=== PATIENT | female | born 1975 | race Caucasian/White ===

== ENCOUNTER → 2019-09-16 | Outpatient (CLI) | payer BC ==
--- NOTE | 2019-09-16 11:16 | Diagnostic Imaging Report ---
INDICATION: Gestational diabetes. TECHNIQUE: Multiple real-time grayscale images were obtained over the gravid uterus. COMPARISON: None. FINDINGS: There is a single live fetus in a cephalic presentation. heart rate was recorded at 139 BPM. Placenta is anterior. There does appear to be an amniotic band along the left side of the uterus. No definite parts are surrounded by the band. Biophysical profile was also performed. Biophysical profile score is normal at 8/8. Biometrical measurements are as follows: Biparietal 8.43 cm, age 34 weeks 0 days. Head circumference 30.77 cm, age 34 weeks 3 days. Abdominal circumference 29.57 cm, age 33 weeks 4 days. Femur length 6.47 cm, age 33 weeks 3 days. Sonographic estimate age: 33 weeks 6 days. Sonographic estimated date of delivery: 10/29/2019. Estimated Weight: 2237 gm (+/- 327 gm). LMP percentile: 87%. heart rate: 139 beats per minute. number: 1 of 1. IMPRESSION: 1. Single live IUP of approximately 34 weeks gestational age with estimated date of confinement sonographically of 10/29/2019. 2. Findings consistent with an amniotic band on the left side of the uterus. No definite parts are encircled by the band at this time. 3. Normal biophysical profile score at 8/8. Dictated by: Dictated on workstation # [id number]
== END ==
LOC: RAD 09:13
PROVIDERS: ATTEND Obstetrics & Gynecology
DX: O24.410 Gestational diabetes mellitus in pregnancy, diet controlled (principal); O09.523 Supervision of elderly multigravida, third trimester; Z3A.34 34 weeks gestation of pregnancy
CPT/HCPCS: 76805; 76819

== ENCOUNTER → 2019-10-19 | Outpatient (CLI) | payer BC ==
--- NOTE | 2019-10-19 17:22 | Diagnostic Imaging Report ---
INDICATION: History of advanced maternal age. Gestational diabetes. TECHNIQUE: Multiple real-time grayscale images were obtained over the gravid uterus. COMPARISON: 09/16/2019. FINDINGS: There is single intrauterine . heartbeat is documented at 144 BPM. Placenta is anterior, not low lying. Amniotic fluid measures 20.75 cm. Please note, this is greater than the 95th percentile. This however has not significantly changed compared to 21 cm total DAIANA on prior exam. position is breech. Performing boiling tub operator also makes note of amniotic band on the left. There is no evidence of involvement of parts at this time. IMPRESSION: 1. Single live intrauterine . 2. Stable polyhydramnios. 3. Please see below for additional details. Biometrical measurements are as follows: Biparietal 9.07 cm, age 36 weeks 6 days. Head circumference 34.23 cm, age 39 weeks 4 days. Abdominal circumference 33.03 cm, age 37 weeks 0 days. Femur length 7.05 cm, age 36 weeks 1 days. Sonographic estimate age: 37 weeks 3 days. Sonographic estimated date of delivery: 11/06/19. Estimated Weight: 3089 gm (+/- 451 gm). LMP percentile: 63%. heart rate: 144 beats per minute. number: 1 of 1. Dictated by: Dictated on workstation # [id number]
== END ==
LOC: RAD 13:41
PROVIDERS: ATTEND Obstetrics & Gynecology
DX: O09.523 Supervision of elderly multigravida, third trimester (principal); O24.410 Gestational diabetes mellitus in pregnancy, diet controlled; O40.3XX1 Polyhydramnios, third trimester, fetus 1; Z3A.36 36 weeks gestation of pregnancy
CPT/HCPCS: 76805; 76819

== ENCOUNTER 2019-10-29 05:51 | Outpatient (RCR) | payer BC ==
[~2019-10-29] VITALS: Ht 167.7 cm; Wt 103.2 kg
[2019-10-29] MEDS ORDERED: METF-397 PO (15:04)
[2019-10-29] MEDS ORDERED: PNV1TABL81 PO (15:04)
[2019-11-03] MEDS ORDERED: IBUP-844 PO (08:35)
[2019-11-03] MEDS ORDERED: OXYC5TAB96 PO (08:35)
[2019-11-03] MEDS ORDERED: ACET-93 PO (08:35)
[2019-11-03] MEDS ORDERED: FERR-84 PO (08:35)
[2019-11-03] MEDS ORDERED: DCS100C PO (08:35)
== END 2019-10-29 16:00 | disposition home or self-care (01) ==
LOC: PREOP 05:51
PROVIDERS: ATTEND Obstetrics & Gynecology
DX: Z01.818 Encounter for other preprocedural examination (principal); E11.9 Type 2 diabetes mellitus without complications; I10 Essential (primary) hypertension; Z20.828 Contact with and (suspected) exposure to other viral communicable diseases
CPT/HCPCS: 87635

== ENCOUNTER → 2019-10-29 | Outpatient (CLI) | payer BC ==
[~2019-10-29] MED LIST: ACET-93 PO; DCS100C PO; FERR-84 PO; IBUP-844 PO; METF-397 PO; OXYC5TAB96 PO; PNV1TABL81 PO
== END ==
LOC: LAB FS 10:15
PROVIDERS: ATTEND Obstetrics & Gynecology
DX: Z01.818 Encounter for other preprocedural examination (principal); Z20.828 Contact with and (suspected) exposure to other viral communicable diseases

== ENCOUNTER 2019-11-02 10:39 | Inpatient (IN) | payer BC ==
[2019-11-02] VITALS (9 sets, daily range): BP systolic 107–142; BP diastolic 68–90
[~2019-11-02] VITALS: Ht 167.7 cm; Wt 102.1 kg
[~2019-11-02 10:39] MED LIST changes: -ACET-93 PO; -DCS100C PO; -FERR-84 PO; -IBUP-844 PO; -OXYC5TAB96 PO
--- NOTE | 2019-11-02 10:45 | NUR ---
Arrived to unit ambulates self accompanied by s.o. Pt here for contractions and monitoring, possible repeat today. Orders received from Dr Mcqueen prior to pt arrival. Wt obtained and to room 315. Gowned and urine sample obtained. To bed and oriented to call light, bed controls and surroundings. Plan of care reviewed with pt and s.o. at bedside.
[2019-11-02] MEDS ORDERED: NS IV 1000 ML 1,000 ML IV SCH (11:14)
--- OUTSIDE RECORDS SUMMARY | 2019-11-02 11:33 | XMS REPORT | Continuity of Care Document ---
Demographics Preferred Language Unknown Marital Status Unknown Alevism Affiliation Unknown Race Unknown Ethnic Group Unknown Author Organization Unknown Address Unknown Phone Unavailable Allergies Active Description Code Type Severity Reaction Onset Reported/Identified Relationship to Patient Clinical Status Yes NO KNOWN DRUG ALLERGIES UNKNOWN NO KNOWN DRUG ALLERG Yes NO KNOWN DRUG ALLERGIES UNKNOWN UNKNOWN Yes No Known Drug Allergies [id number] Drug Allergy Unknown N/A 10/29/2019 Medications There is no data. Problems Date Dx Coded Attending Type Code Diagnosis Diagnosed By 05/29/2017 A 626.0 ABSE NCE OF MENSTRUATION 05/29/2017 A N91.1 SECO NDARY AMENORRHEA 07/10/2017 Chelita Johnson A 626.0 ABSENCE OF MENSTRUATION 07/10/2017 Hilaria Johnsona A N91.1 SECONDARY AMENORRHEA 07/10/2017 Hilaria Johnsona A 626.0 ABSENCE OF MENSTRUATION 07/10/2017 Hilaria Johnsona A N91.1 SECONDARY AMENORRHEA 04/07/2018 Hilaria Johnsona W V70.0 ROUTINE GENERAL MEDICAL EXAMINATION AT A HEALTH CARE FACILITY 04/07/2018 Hilaria Johnsona W Z00.00 ENCOUNTER FOR GENERAL ADULT MEDICAL EXAMINATION WITHOUT ABNORMAL FINDINGS 04/07/2018 Hilaria Johnsona W V70.0 ROUTINE GENERAL MEDICAL EXAMINATION AT A HEALTH CARE FACILITY 04/07/2018 Hilaria Johnsona W Z00.00 ENCOUNTER FOR GENERAL ADULT MEDICAL EXAMINATION WITHOUT ABNORMAL FINDINGS 04/07/2018 W V70.0 ROUT INE GENERAL MEDICAL EXAMINATION AT A HEALTH CARE FACILITY 04/07/2018 W Z00.00 ENC OUNTER FOR GENERAL ADULT MEDICAL EXAMINATION WITHOUT ABNORMAL FINDINGS 04/07/2018 AlexHilraiaa W V70.0 ROUTINE GENERAL MEDICAL EXAMINATION AT A HEALTH CARE FACILITY 04/07/2018 Hilaria Johnsona W Z00.00 ENCOUNTER FOR GENERAL ADULT MEDICAL EXAMINATION WITHOUT ABNORMAL FINDINGS 04/16/2018 Hilaria Johnsona W V70.0 ROUTINE GENERAL MEDICAL EXAMINATION AT A HEALTH CARE FACILITY 04/16/2018 Hilaria Johnsona W Z00.00 ENCOUNTER FOR GENERAL ADULT MEDICAL EXAMINATION WITHOUT ABNORMAL FINDINGS 04/16/2018 Hilaria Johnsona W V70.0 ROUTINE GENERAL MEDICAL EXAMINATION AT A HEALTH CARE FACILITY 04/16/2018 Chelita Johnson Z00.00 ENCOUNTER FOR GENERAL ADULT MEDICAL EXAMINATION WITHOUT ABNORMAL FINDINGS 09/17/2019 WU DO, BRIA C Ot O09.5 23 [facility] 09/17/2019 WU DO, BRIA C Ot O24.4 10 GESTATIONAL DIABETES MELLITUS IN PREGNAN 09/17/2019 WU DO, BRIA C Ot Z3A.3 4 34 WEEKS GESTATION OF 10/05/2019 WU DO, BRIA C Ot O09.5 23 [facility] 10/05/2019 WU DO, BRIA C Ot O24.4 10 GESTATIONAL DIABETES MELLITUS IN PREGNAN 10/05/2019 WU DO, BRIA C Ot Z3A.3 4 34 WEEKS GESTATION OF 10/21/2019 WU DO, BRIA C Ot O09.5 23 [facility] 10/21/2019 WU DO, BRIA C Ot O24.4 10 GESTATIONAL DIABETES MELLITUS IN PREGNAN 10/21/2019 WU DO, BRIA C Ot O40.3XX1 POLYHYDRAMNIOS, THIRD TRIMESTER, FETUS 1 10/21/2019 WU DO, BRIA C Ot Z3A.3 6 36 WEEKS GESTATION OF Procedures There is no data. Results Test Result Range FSH and LH - 07/10/17 10:56 LH 40.9 mIU/mL FSH 7.9 mIU/mL Estradiol - 07/10/17 10:56 Estradiol 292.6 pg/mL Thyroid Stimulating Hormone - 07/10/17 1 0:56 TSH 4.60 mIU/mL 0.32-5.00 FSH and LH - 07/10/17 10:56 LH 40.9 MIU/ML FSH 7.9 MIU/ML Estradiol - 07/10/17 10:56 Estradiol 292.6 PG/ML Pap IG (Image Guided) - 04/07/18 16:03 DIAGNOSIS: Comment Specimen adequacy: Comment Clinician provided ICD10: Comment Performed by: Comment . . Note: Comment Test Methodology: Comment Coronavirus SARS-CoV-2 SO 2019 - 0 10:15 Coronavirus Ab [Units/volume] in Serum Negative Negative Encounters ACCT No. Visit Date/Time Discharge Status Pt. Type Provider Facility Loc./Unit Complaint [id number] 07/11/2017 07:15:00 Document Registration [id number] 04/11/2018 13:15:00 Document Registration [id number] 10/29/2019 10:15:00 23:59:59 CLS Outpatient BRIA WU DO [facility] LAB FS PRE OP REQUIREMENT [id number] 10/29/2019 05:51:00 23:59:59 CLS Outpatient BRIA WU DO [facility] PREOP PREVIOUS [id number] 10/19/2019 13:41:00 23:59:59 CLS Outpatient BRIA WU DO [facility] RAD GESTATIONAL DIABETES ME LLITUS,CLASS A1 [id number] 09/16/2019 09:13:00 23:59:59 CLS Outpatient BRIA WU DO [facility] RAD GESTATIONAL DIABETES,31 WEEKS [id number] 04/28/2019 13:41:00 04/28/2019 23:59 :00 DIS Outpatient Hanh Salinas [id number] 04/28/2019 13:39:00 04/28/2019 23:59 :00 DIS Outpatient Hanh Salinas [id number] 04/16/2018 08:30:00 04/16/2018 23:59: 00 DIS Outpatient Chelita Johnson [id number] 04/07/2018 16:02:00 04/07/2018 23:59: 00 DIS Outpatient Chelita Johnson [id number] 07/10/2017 10:53:00 07/10/2017 23:59: 00 DIS Outpatient Chelita Johnson [id number] 08/22/2016 15:00:00 08/22/2016 23:59: 00 DIS Outpatient Chelita Johnson [id number] 04/07/2018 14:11:00 Document Registration [id number] 05/29/2017 14:05:00 Document Registration
[2019-11-02 11:55] LABS: BASOPHILS % (AUTO) 0 % (0-10); EOSINOPHILS % (AUTO) 0 % (0-10); HEMATOCRIT 35 % (35-52); HEMOGLOBIN 11.5 G/DL (11.5-16.0); LYMPHOCYTES # (AUTO) 1.6 X 10^3 (1.0-4.0); LYMPHOCYTES % (AUTO) 17 % (12-44); MEAN CORPUSCULAR HEMOGLOBIN 26 PG (25-34); MEAN CORPUSCULAR HGB CONC 33 G/DL (32-36); MEAN CORPUSCULAR VOLUME 81 FL (80-99); MEAN PLATELET VOLUME 10.4 FL (7.4-10.4); MONOCYTES # (AUTO) 0.6 X 10^3 (0.0-1.0); MONOCYTES % (AUTO) 6 % (0-12); NEUTROPHILS # (AUTO) 7.3 X 10^3 (1.8-7.8); NEUTROPHILS % (AUTO) 77 % (42-75); PLATELET COUNT 317 10^3/uL (130-400); RED CELL DISTRIBUTION WIDTH 14.8 % (10.0-14.5); WHITE BLOOD COUNT 9.5 10^3/uL (4.3-11.0)
[2019-11-02 11:58] LABS: BILIRUBIN,URINE NEGATIVE (NEGATIVE); CLARITY,URINE CLEAR; COLOR,URINE YELLOW; GLUCOSE, URINE (UA) NEGATIVE (NEGATIVE); KETONES,URINE 3+ (NEGATIVE); LEUKOCYTE ESTERASE ,URINE 1+ (NEGATIVE); NITRITE,URINE NEGATIVE (NEGATIVE); PH,URINE 6.5 (5-9); PROTEIN,URINE NEGATIVE (NEGATIVE)
[2019-11-02 12:07] LABS: BACTERIA,URINE FEW /HPF; RBC,URINE RARE /HPF
--- NOTE | 2019-11-02 12:10 | NUR ---
Dr Mcqueen called and new order to prepare pt for received. plan of care reviewed with pt and s.o.
[2019-11-02 12:17] LABS: ALANINE AMINOTRANSFERASE 35 U/L (0-55); ALBUMIN 3.4 GM/DL (3.2-4.5); ALKALINE PHOSPHATASE 133 U/L (40-136); BILIRUBIN,TOTAL 0.6 MG/DL (0.1-1.0); BUN/CREATININE RATIO 8; CALCIUM 8.5 MG/DL (8.5-10.1); CARBON DIOXIDE 15 MMOL/L (21-32); CHLORIDE 110 MMOL/L (98-107); CREATININE SERUM 0.63 MG/DL (0.60-1.30); GFR ESTIMATED > 60; GLUCOSE 70 MG/DL (70-105); POTASSIUM 3.9 MMOL/L (3.6-5.0); SODIUM 137 MMOL/L (135-145); TOTAL PROTEIN 6.6 GM/DL (6.4-8.2); URIC ACID 4.9 MG/DL (2.6-7.2)
--- NOTE | 2019-11-02 12:19 | NUR ---
Report to Bebe Cool RN
[2019-11-02] MEDS ORDERED: METOCLOPRAMIDE INJ 10 MG/2 ML (REGLAN) ONE (12:30)
[2019-11-02] MEDS ORDERED: CITRIC ACID/SOB CIT (BICITRA) 30 ML UDC ONE (12:30)
[2019-11-02] MEDS ORDERED: LACTATED RINGERS 1,000 ML IV ONE (12:30)
[2019-11-02] MEDS ORDERED: ceFAZolin INJECTION 1,000 MG in WATER (STERILE) FOR INJECTION 10 ML IV ONE (12:30)
[2019-11-02] MEDS ORDERED: WATER (STERILE) FOR INJECTION 10 ML ONE (12:31)
[2019-11-02] MEDS ORDERED: FAMOTIDINE 20MG/2ML IV (PEPCID) ONE (12:31)
[2019-11-02] MEDS ORDERED: ceFAZolin INJECTION 1,000 MG ONE (12:31)
[2019-11-02] MEDS ORDERED: fentaNYL INJECTION 100 MCG/2 ML AMP ONE (12:32)
[2019-11-02] MEDS ORDERED: OXYTOCIN PRE-MIX DRIP 1,000 ML IV ONE (12:34)
--- NOTE | 2019-11-02 12:40 | NUR ---
per-op medications given, see eMar for further
--- NOTE | 2019-11-02 12:53 | NUR ---
pt ambulated to OB c/s room with OR staff @ side. pt stable with no sx's of distress noted
[2019-11-02] MEDS ORDERED: ONDANSETRON 4 MG/2 ML (SDV) Z0FRAN ONE (13:23)
--- NOTE | 2019-11-02 13:59 | Cesarean Section Operative ---
Procedure Procedure Note Pre-operative Diagnosis: Terra Vallejo is a 43 /Para 3/4 ,Gestational Age 38 5/7, history of previous section, in labor, gestational hypertension, gestational diabetes, A2, borderline NST, malpresentation (breech) Post-operative Diagnosis: same [] Procedure: repeat low transverse section Physician: BRIA WU Hay Stacker: [] Estimated blood loss: 500 mL Disposition: [] Findings: Viable male infant, Apgars pending, weight pending intact placenta, 3vc, normal appearing uterus, tubes, and ovaries. Indications:Terra Vallejo is a 43 /Para 3/4 ,Gestational Age 38 5/7, history of previous section, in labor, gestational hypertension, gestational diabetes, A2, borderline NST, malpresentation (breech) Procedure Details: The patient was seen in pre-op and the procedure was discussed with the patient in full, including the risks, benefits, and alternatives. All questions were answered. The patient was taken to the operating room and a time out was performed, verifying patient and procedure. After spinal anesthesia was placed by our anesthesia colleagues, the patient was placed in the dorsal supine with leftward tilt for uterine displacement.~ Her abdomen was then prepped and draped in the typical sterile fashion. A Pfannenstiel skin incision was made using a scalpel and carried down through the underlying fascia. The fascia was incised in the midline and tented up using Chad clamps. On both the inferior and superior fascia side the rectus muscle was dissected off bluntly and sharply using Chavez scissors. The peritoneum was identified and entered bluntly in the midline. This was then stretched laterally using manual strength. After entering the abdominal cavity and confirming lack of intraperitoneal adhesions, a large Esteban retractor was placed and the lower uterine segment was visualized. A bladder flap was created with the use of Metzenbaum scissors.~ A scalpel was utilized to make a low transverse uterine incision. Amniotomy was performed with an Allis clamp with return of clear fluid. The 's head was grasped and brought to the level of the incision. Fundal pressure was applied and was delivered without difficulty. Mouth and nares were suctioned with bulb suction. After the umbilical cord was clamped and cut, the was handed off to the pediatric staff. A sample of cord blood was then obtained. The placenta was delivered intact via uterine massage. The uterus was e xteriorized and cleared of all clots and debris. The uterine incision was closed using 0 Vicryl in a running locked fashion. A second imbricated layer was placed using 0 Vicryl in a running fashion as well. The uterus was flexed forward and the posterior rectouterine space was inspected and cleared of all clots and debris. Again the hysterotomy site was examined and hemostasis was observed. The bilateral tubes and ovaries appeared normal. The uterus was placed back into the abdominal cavity and abdominal gutters were cleared of all clots and debris. A final check of the uterine incision showed it to be hemostatic. The peritoneum was closed using 3-0 Vicryl in a running fashion. The fascia was closed with 0 Vicryl in a running fashion. The subcutaneous space was hemostatic, and irrigated. The subcutaneous space was closed with 3-0 Vicryl in several single interrupted stitches. The skin was then closed using 4-0 Monocryl in a running subcuticular fashion. The skin edges were reapproximated together and were hemostatic. A pressure dressing was applied. All sponge, lap and needle counts were correct at the end of the procedure per nursing. Vitals - Labs Vital Signs - I&O Vital Signs Date Time Temp Pulse Resp B/P (MAP) Pulse Ox O2 Delivery O2 Flow Rate FiO2 11/02/19 11:06 37.1 83 18 96 Room Air 11/02/19 11:05 37.1 76 16 138/90 (106) 96 Room Air Labs Laboratory Tests 11/02/19 11:15: Urine Color YELLOW, Urine Clarity CLEAR, Urine pH 6.5, Urine Specific Caldwell 1.015L, Urine Protein NEGATIVE, Urine Glucose (UA) NEGATIVE, Urine Ketones 3+H, Urine Nitrite NEGATIVE, Urine Bilirubin NEGATIVE, Urine Urobilinogen 1.0, Urine Leukocyte Esterase 1+H, Urine RBC (Auto) NEGATIVE, Urine RBC RARE, Urine WBC 2- 5, Urine Squamous Epithelial Cells 10-25H, Urine Crystals NONE, Urine Bacteria FEWH, Urine Casts NONE, Urine Mucus SMALLH, Urine Culture Indicated YES, Urine Creatinine 129H, Urine Protein/Creatinine Ratio 0.11 11/02/19 11:30: White Blood Count 9.5, Red Blood Count 4.36, Hemoglobin 11.5, Hematocrit 35, Mean Corpuscular Volume 81, Mean Corpuscular Hemoglobin 26, Mean Corpuscular Hemoglobin Concent 33, Red Cell Distribution Width 14.8H, Platelet Count 317, Mean Platelet Volume 10.4, Neutrophils (%) (Auto) 77H, Lymphocytes (%) (Auto) 17, Monocytes (%) (Auto) 6, Eosinophils (%) (Auto) 0, Basophils (%) (Auto) 0, Neutrophils # (Auto) 7.3, Lymphocytes # (Auto) 1.6, Monocytes # (Auto) 0.6, Eosinophils # (Auto) 0.0, Basophils # (Auto) 0.0, Sodium Level 137, Potassium Level 3.9, Chloride Level 110H, Carbon Dioxide Level 15L, Anion Gap 12, Blood Urea Nitrogen 5L, Creatinine 0.63, Estimat Glomerular Filtration Rate > 60, BUN/Creatinine Ratio 8, Glucose Level 70, Uric Acid 4.9, Calcium Level 8.5, Corrected Calcium 9.0, Total Bilirubin 0.6, Aspartate Amino Transf (AST/SGOT) 24, Alanine Aminotransferase (ALT/SGPT) 35, Alkaline Phosphatase 133, Lactate Dehydrogenase 162, Total Protein 6.6, Albumin 3.4 BRIA WU DO Nov 02, 2019 13:59
[2019-11-02] MEDS ORDERED: OXYTOCIN PRE-MIX DRIP 500 ML IV SCH (14:00)
[2019-11-02] MEDS ORDERED: CATHETER FLUSH 10 ML SYR IV SCH (14:00)
[2019-11-02] MEDS ORDERED: morphine INJ 4 MG/ML 1 ML (VIAL/SYRINGE) IVP PRN (14:00)
[2019-11-02] MEDS ORDERED: MEASLES,MUMPS,RUBELLA 1 EA INJ SC SCH (14:00)
[2019-11-02] MEDS ORDERED: TETANUS,DIPTH,PERTUSS P/F (BOOSTRIX) 0.5 ML VIAL IM SCH (14:00)
[2019-11-02] MEDS ORDERED: BUPIVACAINE 0.5% 30 ML (SENSORCAINE) VIAL ONE (14:04)
[2019-11-02] MEDS: KETOROLAC 30 MG/ML VIAL IV SCH ×2 (15:27→21:08)
[2019-11-02] MEDS: ACETAMINOPHEN 500 MG TAB (TYLENOL) PO SCH (17:37)
[2019-11-02] MEDS ORDERED: LACTATED RINGERS 1,000 ML IV PRN (18:13)
[2019-11-02] MEDS ORDERED: METOCLOPRAMIDE INJ 10 MG/2 ML (REGLAN) IV ONE (18:15)
[2019-11-02] MEDS ORDERED: FAMOTIDINE 20MG/2ML IV (PEPCID) IV ONE (18:15)
[2019-11-02] MEDS ORDERED: CITRIC ACID/SOB CIT (BICITRA) 30 ML UDC PO ONE (18:15)
--- NOTE | 2019-11-02 19:10 | NUR ---
report given to ELIEL Pleitez.
[2019-11-02] MEDS: DOCUSATE SODIUM 100 MG (COLACE) CAP PO SCH (21:08)
--- NOTE | 2019-11-02 21:15 | NUR ---
First void postop, pt assisted standby to bathroom, pericare pads changed, pt assisted back to bed, scds on and pumping bilat, call light in reach, needs denied.
[2019-11-03 00:37] VITALS: BP 131/77
[2019-11-03] MEDS: KETOROLAC 30 MG/ML VIAL IV SCH (02:40)
[2019-11-03] MEDS: ACETAMINOPHEN 500 MG TAB (TYLENOL) PO SCH ×3 (02:41→21:54)
[2019-11-03 06:09] LABS: BASOPHILS % (AUTO) 0 % (0-10); EOSINOPHILS # (AUTO) 0.1 10^3/uL (0.0-0.3); EOSINOPHILS % (AUTO) 1 % (0-10); HEMATOCRIT 32 % (35-52); HEMOGLOBIN 10.2 G/DL (11.5-16.0); LYMPHOCYTES # (AUTO) 1.6 X 10^3 (1.0-4.0); LYMPHOCYTES % (AUTO) 15 % (12-44); MEAN CORPUSCULAR HEMOGLOBIN 26 PG (25-34); MEAN CORPUSCULAR HGB CONC 32 G/DL (32-36); MEAN CORPUSCULAR VOLUME 82 FL (80-99); MEAN PLATELET VOLUME 10.5 FL (7.4-10.4); MONOCYTES # (AUTO) 0.9 X 10^3 (0.0-1.0); MONOCYTES % (AUTO) 8 % (0-12); NEUTROPHILS # (AUTO) 8.2 X 10^3 (1.8-7.8); NEUTROPHILS % (AUTO) 76 % (42-75); PLATELET COUNT 264 10^3/uL (130-400); RED CELL DISTRIBUTION WIDTH 14.4 % (10.0-14.5); WHITE BLOOD COUNT 10.7 10^3/uL (4.3-11.0)
[2019-11-03 06:30] VITALS: BP 145/69
--- NOTE | 2019-11-03 07:16 | Anesthesia-Regional Post-Op ---
Regional Patient Condition Mental Status: Alert, Oriented x3 Circulation: Same as Pre-Op Headache: Absent Sensation: Full Recovery Motor Block: Absent Post Op Complications Complications None Follow Up Care/Instructions Patient Instructions None needed. Anesthesia/Patient Condition Patient is doing well, no complaints, stable vital signs, no apparent adverse anesthesia problems. No complications reported per nursing. JUAN ANTONIO MANZANO CRNA Nov 03, 2019 07:16
--- NOTE | 2019-11-03 08:32 | Postpartum Progress Note ---
Post Op Post-operative Day #1 s/p RLTCS Subjective: Patient is without complaints. Ambulating, voiding after landis removed. Tolerating a regular diet without nausea or vomiting. Normal lochia. Pain is well controlled with oral pain medications. Passing flatus. breast feeding. Objective: 11/02/19 11/02/19 11/03/19 11/03/19 21:07 22:13 00:37 06:30 Temp 36.7 36.5 37.0 Pulse 89 78 85 Resp 18 18 18 B/P (MAP) 123/75 (91) 131/77 (95) 145/69 (94) Pulse Ox 95 95 94 O2 Delivery Room Air Room Air Room Air Room Air 11/03/19 00:00 Intake Total 10 ml Output Total 75 ml Balance -65 ml Laboratory Tests Test 11/02/19 11:15 11/02/19 11:30 11/03/19 05:45 Range/Units Urine Color YELLOW Urine Clarity CLEAR Urine pH 6.5 5-9 Urine Specific Grady 1.015 L 1.016-1.022 Urine Protein NEGATIVE NEGATIVE Urine Glucose (UA) NEGATIVE NEGATIVE Urine Ketones 3+ H NEGATIVE Urine Nitrite NEGATIVE NEGATIVE Urine Bilirubin NEGATIVE NEGATIVE Urine Urobilinogen 1.0 < = 1.0 MG/DL Urine Leukocyte Esterase 1+ H NEGATIVE Urine RBC (Auto) NEGATIVE NEGATIVE Urine RBC RARE /HPF Urine WBC 2-5 /HPF Urine Squamous Epithelial Cells 10-25 H /HPF Urine Crystals NONE /LPF Urine Bacteria FEW H /HPF Urine Casts NONE /LPF Urine Mucus SMALL H /LPF Urine Culture Indicated YES Urine Creatinine 129 H 30-125 MG/DL Urine Protein/Creatinine Ratio 0.11 White Blood Count 9.5 10.7 4.3-11.0 10^3/uL Red Blood Count 4.36 3.88 L 4.35-5.85 10^6/uL Hemoglobin 11.5 10.2 L 11.5-16.0 G/DL Hematocrit 35 32 L 35-52 % Mean Corpuscular Volume 81 82 80-99 FL Mean Corpuscular Hemoglobin 26 26 25-34 PG Mean Corpuscular Hemoglobin Concent 33 32 32-36 G/DL Red Cell Distribution Width 14.8 H 14.4 10.0-14.5 % Platelet Count 317 264 130-400 10^3/uL Mean Platelet Volume 10.4 10.5 H 7.4-10.4 FL Neutrophils (%) (Auto) 77 H 76 H 42-75 % Lymphocytes (%) (Auto) 17 15 12-44 % Monocytes (%) (Auto) 6 8 0-12 % Eosinophils (%) (Auto) 0 1 0-10 % Basophils (%) (Auto) 0 0 0-10 % Neutrophils # (Auto) 7.3 8.2 H 1.8-7.8 X 10^3 Lymphocytes # (Auto) 1.6 1.6 1.0-4.0 X 10^3 Monocytes # (Auto) 0.6 0.9 0.0-1.0 X 10^3 Eosinophils # (Auto) 0.0 0.1 0.0-0.3 10^3/uL Basophils # (Auto) 0.0 0.0 0.0-0.1 10^3/uL Sodium Level 137 135-145 MMOL/L Potassium Level 3.9 3.6-5.0 MMOL/L Chloride Level 110 H 98-107 MMOL/L Carbon Dioxide Level 15 L 21-32 MMOL/L Anion Gap 12 5-14 MMOL/L Blood Urea Nitrogen 5 L 7-18 MG/DL Creatinine 0.63 0.60-1.30 MG/DL Estimat Glomerular Filtration Rate > 60 BUN/Creatinine Ratio 8 Glucose Level 70 92 70-105 MG/DL Uric Acid 4.9 2.6-7.2 MG/DL Calcium Level 8.5 8.5-10.1 MG/DL Corrected Calcium 9.0 8.5-10.1 MG/DL Total Bilirubin 0.6 0.1-1.0 MG/DL Aspartate Amino Transf (AST/SGOT) 24 5-34 U/L Alanine Aminotransferase (ALT/SGPT) 35 0-55 U/L Alkaline Phosphatase 133 40-136 U/L Lactate Dehydrogenase 162 125-220 U/L Total Protein 6.6 6.4-8.2 GM/DL Albumin 3.4 3.2-4.5 GM/DL Physical Exam: General - Alert and oriented, no apparent distress Abdomen - Soft, appropriately tender to palpation, non-distended, fundus firm at umbilicus Incision - clean, dry and intact; no erythema or induration, no drainage Extremities - no edema, negative Zhou's bilaterally [] Assessment: 1. post-operative day # 1, status post rltcs. Recovering well, hemodynamically stable 2. GDM A2 3. Gest HYN 4. Acute blood loss anemia - mild Plan: Routine post-operative care. Encourage breast feeding. Encourage ambulation. VTE prophylaxis: SCDs. Ferrous sulfate supplementation. Plan for discharge Vitals - Labs Vital Signs - I&O Vital Signs Date Time Temp Pulse Resp B/P (MAP) Pulse Ox O2 Delivery O2 Flow Rate FiO2 11/03/19 06:30 37.0 85 18 145/69 (94) 94 Room Air 11/03/19 00:37 36.5 78 18 131/77 (95) 95 Room Air 11/02/19 22:13 Room Air 11/02/19 21:07 36.7 89 18 123/75 (91) 95 Room Air 11/02/19 17:38 37.0 81 16 123/68 (86) 94 Room Air 11/02/19 15:03 37.2 16 127/76 (93) 95 Room Air 11/02/19 15:03 37.2 83 18 127/76 (93) 95 Room Air 11/02/19 14:48 37.1 16 132/73 (92) 98 Room Air 11/02/19 14:28 37.3 18 127/74 (91) 98 Room Air 11/02/19 14:09 37.1 107/86 (93) 100 Room Air 11/02/19 12:40 68 18 142/79 (100) Room Air 11/02/19 11:06 37.1 83 18 96 Room Air 11/02/19 11:05 37.1 76 16 138/90 (106) 96 Room Air I & O 11/03/19 07:00 Intake Total 1210 ml Output Total 775 ml Balance 435 ml Labs Laboratory Tests 11/02/19 11:15: Urine Color YELLOW, Urine Clarity CLEAR, Urine pH 6.5, Urine Specific Grady 1.015L, Urine Protein NEGATIVE, Urine Glucose (UA) NEGATIVE, Urine Ketones 3+H, Urine Nitrite NEGATIVE, Urine Bilirubin NEGATIVE, Urine Urobilinogen 1.0, Urine Leukocyte Esterase 1+H, Urine RBC (Auto) NEGATIVE, Urine RBC RARE, Urine WBC 2- 5, Urine Squamous Epithelial Cells 10-25H, Urine Crystals NONE, Urine Bacteria FEWH, Urine Casts NONE, Urine Mucus SMALLH, Urine Culture Indicated YES, Urine Creatinine 129H, Urine Protein/Creatinine Ratio 0.11 11/02/19 11:30: White Blood Count 9.5, Red Blood Count 4.36, Hemoglobin 11.5, Hematocrit 35, Mean Corpuscular Volume 81, Mean Corpuscular Hemoglobin 26, Mean Corpuscular Hemoglobin Concent 33, Red Cell Distribution Width 14.8H, Platelet Count 317, Mean Platelet Volume 10.4, Neutrophils (%) (Auto) 77H, Lymphocytes (%) (Auto) 17, Monocytes (%) (Auto) 6, Eosinophils (%) (Auto) 0, Basophils (%) (Auto) 0, Neutrophils # (Auto) 7.3, Lymphocytes # (Auto) 1.6, Monocytes # (Auto) 0.6, Eosinophils # (Auto) 0.0, Basophils # (Auto) 0.0, Sodium Level 137, Potassium Level 3.9, Chloride Level 110H, Carbon Dioxide Level 15L, Anion Gap 12, Blood Urea Nitrogen 5L, Creatinine 0.63, Estimat Glomerular Filtration Rate > 60, BUN/Creatinine Ratio 8, Glucose Level 70, Uric Acid 4.9, Calcium Level 8.5, Corrected Calcium 9.0, Total Bilirubin 0.6, Aspartate Amino Transf (AST/SGOT) 24, Alanine Aminotransferase (ALT/SGPT) 35, Alkaline Phosphatase 133, Lactate Dehydrogenase 162, Total Protein 6.6, Albumin 3.4 11/03/19 05:45: White Blood Count 10.7, Red Blood Count 3.88L, Hemoglobin 10.2L, Hematocrit 32L, Mean Corpuscular Volume 82, Mean Corpuscular Hemoglobin 26, Mean Corpuscular Hemoglobin Concent 32, Red Cell Distribution Width 14.4, Platelet Count 264, Mean Platelet Volume 10.5H, Neutrophils (%) (Auto) 76H, Lymphocytes (%) (Auto) 15, Monocytes (%) (Auto) 8, Eosinophils (%) (Auto) 1, Basophils (%) (Auto) 0, Neutrophils # (Auto) 8.2H, Lymphocytes # (Auto) 1.6, Monocytes # (Auto) 0.9, Eosinophils # (Auto) 0.1, Basophils # (Auto) 0.0, Glucose Level 92 BRIA WU DO Nov 03, 2019 08:32
[2019-11-03] MEDS ORDERED: OXYC5TAB96 PO (08:35)
[2019-11-03] MEDS ORDERED: IBUP-844 PO (08:35)
[2019-11-03] MEDS ORDERED: DCS100C PO (08:35)
[2019-11-03] MEDS ORDERED: ACET-93 PO (08:35)
[2019-11-03] MEDS ORDERED: FERR-84 PO (08:35)
--- NOTE | 2019-11-03 08:37 | Discharge Inst-Women's Service ---
Discharge Inst-Women's Serv Depart Medication/Instructions New, Converted or Re-Newed RX: Other (transmitted to pharmacy and on chart) Final Diagnosis previous section labor gestational hypertension gestational diabetes A2 Acute blood loss anemia advanced maternal age 38 week gestation Consults/Follow Up Additional Follow Up: Yes (1 week for incision check. 6 week pp exam) Activity Activity: Activity as Tolerated Driving Instructions: No Driving for 1 Week NO SMOKING: NO SMOKING Nothing Inside Vagina: No Douching, No [place], No Tampons Diet Discharge Diet: No Restrictions Symptoms to Report to : Swelling Increased, Bleeding Excessive, Fever Over 101 Degrees F, Vaginal Bleeding Increase, Cramps in Feet or Legs, Vaginal Discharge Foul For Any Problems or Questions: Contact Your Physician Skin/Wound Care Infection Signs and Symptoms: Increased Redness, Foul Odor of Wound, Increased Drainage, Skin Itchy or Has a Rash, Increased Swelling, Temperature Above 101 F Operative Area Clean and Dry: Keep Incision Clean/Dry Stitches/Samina/Dermabond: Dermabond Bathing Instructions: BRIA Black DO Nov 03, 2019 08:37
[2019-11-03 09:00] VITALS: BP 127/75
--- NOTE | 2019-11-03 09:00 | NUR ---
ASSESSMENT COMPLETED. VSS. REFUSED MMR. STATES HAS HAD MMR SEVERAL TIMES AND STILL NON-IMMUNE. CARING FOR IN ROOM.
[2019-11-03] MEDS ORDERED: IBUPROFEN 600 MG (MOTRIN) TAB PO ONE (09:33)
[2019-11-03] MEDS: DOCUSATE SODIUM 100 MG (COLACE) CAP PO SCH ×2 (09:43→21:54)
[2019-11-03] MEDS: IBUPROFEN 600 MG (MOTRIN) TAB PO SCH ×3 (09:44→21:54)
[2019-11-03] MEDS ORDERED: FERROUS SULF 325 MG (IRON) TAB PO ONE (09:44)
[2019-11-03] MEDS: FERROUS SULF 325 MG (IRON) TAB PO SCH (09:47)
--- NOTE | 2019-11-03 12:00 | NUR ---
CARING FOR INFANT IN ROOM. DOING WELL.
[2019-11-03 12:30] VITALS: BP 136/77
--- NOTE | 2019-11-03 14:25 | NUR ---
PLACED CALL LIGHT ON. STATES THRE UP. LAB HERE TO TAKE TO NURSERY. MOM TO NSY WITH INFANT.
--- NOTE | 2019-11-03 16:00 | NUR ---
CONTINUES TO DO WELL. VOIDED WITHOUT PROBLEMS.
--- NOTE | 2019-11-03 18:00 | NUR ---
STORK MEAL SERVED WITH [id number].
[2019-11-03 19:00] VITALS: BP 138/81
--- NOTE | 2019-11-03 19:00 | NUR ---
VSS. CONTINUES TO CARE FOR IN ROOM.
[2019-11-03 21:54] VITALS: BP 145/78
[2019-11-04 04:21] VITALS: BP 140/82
[2019-11-04] MEDS: IBUPROFEN 600 MG (MOTRIN) TAB PO SCH ×2 (04:22→10:55)
[2019-11-04] MEDS: ACETAMINOPHEN 500 MG TAB (TYLENOL) PO SCH (05:59)
--- NOTE | 2019-11-04 07:28 | Postpartum Progress Note ---
Post Op Post-operative Day #2 s/p LTCS Subjective: Patient is without complaints. Ambulating, voiding after landis removed. Tolerating a regular diet without nausea or vomiting. Normal lochia. Pain is well controlled with oral pain medications. Passing flatus. breast feeding. [] Objective: 11/03/19 11/04/19 21:54 04:21 Temp 36.8 37.0 Pulse 77 74 Resp 18 18 B/P (MAP) 145/78 (100) 140/82 (101) Pulse Ox 95 97 O2 Delivery Room Air Room Air 11/04/19 00:00 Intake Total 1540 ml Output Total 1850 ml Balance -310 ml Laboratory Tests Test 11/04/19 06:00 Range/Units Glucometer 82 70-110 MG/DL Physical Exam: General - Alert and oriented, no apparent distress Abdomen - Soft, appropriately tender to palpation, non-distended, fundus firm at umbilicus Incision - clean, dry and intact; no erythema or induration, no drainage Extremities - no edema, negative Zhou's bilaterally [] Assessment: 1. post-operative day # 2 s/p status post RLTCS Recovering well, hemodynamically stable Acute blood loss anemia 2. GDM - stable 3. HTN - stable, may need meds in post op but will not dc home on meds. Plan: Routine post-operative care. Encourage breast feeding. Encourage ambulation. VTE prophylaxis: SCDs. Ferrous sulfate supplementation. Plan for discharge today Vitals - Labs Vital Signs - I&O Vital Signs Date Time Temp Pulse Resp B/P (MAP) Pulse Ox O2 Delivery O2 Flow Rate FiO2 11/04/19 04:21 37.0 74 18 140/82 (101) 97 Room Air 11/03/19 21:54 36.8 77 18 145/78 (100) 95 Room Air 11/03/19 19:00 36.6 68 18 138/81 (100) 97 Room Air 11/03/19 12:30 36.9 77 18 136/77 (96) 97 Room Air 11/03/19 09:00 36.6 83 18 127/75 (92) 96 Room Air I & O 11/04/19 07:00 Intake Total 1540 ml Output Total 1850 ml Balance -310 ml Labs Laboratory Tests 11/04/19 06:00: Glucometer 82 Microbiology 11/02/19 MRSA Screen - Final, Complete MRSA not isolated 11/02/19 Urine Culture - Final, Complete Lactobacillus species YEAST Gram Pos Mixed Bacterial Cierra See Comments BRIA WU DO Nov 04, 2019 07:28
[2019-11-04 08:12] VITALS: BP 152/80
--- NOTE | 2019-11-04 08:12 | NUR ---
initial shift assessment completed, see interventions for further. POC reviewed, states understanding.
--- NOTE | 2019-11-04 08:30 | NUR ---
here. dismissal orders received.
[2019-11-04] MEDS: FERROUS SULF 325 MG (IRON) TAB PO SCH (10:55)
[2019-11-04] MEDS: DOCUSATE SODIUM 100 MG (COLACE) CAP PO SCH (10:55)
--- NOTE | 2019-11-04 11:00 | NUR ---
dismissal instructions given, verbalizes understanding. reviewed medication administration schedule & follow up appointments. signature page signed, placed on chart.
--- NOTE | 2019-11-04 12:00 | NUR ---
pt ambulated to private vehicle with this RN, and pt's son @ side. secured in rear facing car seat. pt stable with no sx's of distress noted.
== END 2019-11-04 12:00 | disposition home or self-care (01) | DRG 787 ==
LOC: LDRP 10:39
PROVIDERS: ADMIT Obstetrics & Gynecology; ATTEND Obstetrics & Gynecology
PROC: 10D00Z1 Extraction of Products of Conception, Low, Open Approach (ICD-10-PCS; principal; 2019-11-02 12:57)
DX: O34.211 Maternal care for low transverse scar from previous cesarean delivery (principal); D62 Acute posthemorrhagic anemia; O13.4 Gestational [pregnancy-induced] hypertension without significant proteinuria, complicating childbirth; O24.425 Gestational diabetes mellitus in childbirth, controlled by oral hypoglycemic drugs; O32.1XX0 Maternal care for breech presentation, not applicable or unspecified; O99.824 Streptococcus B carrier state complicating childbirth; O90.81 Anemia of the puerperium; Z37.0 Single live birth; Z3A.38 38 weeks gestation of pregnancy
CPT/HCPCS: 36415; 80053; 81000; 82570; 82947; 82962; 83615; 84156; 84550; 85025; 86850; 86900; 86901; 87077; 87081; 87088; 94664